=== PATIENT | male | born 1985 | race African-American/Black ===

== ENCOUNTER 2017-06-03 23:04 | Emergency (ER) | payer BC, MEDICARE, OTHER ==
[~2017-06-03] VITALS: Ht 170.2 cm; Wt 98.1 kg
[2017-06-04] MEDS ORDERED: IBUPROFEN 400MG TABLET PO ONE (06:00)
[2017-06-04 06:13] VITALS: BP 132/72
== END 2017-06-04 06:33 | disposition home or self-care (01) ==
LOC: ER 23:04
DX: S63.502A Unspecified sprain of left wrist, initial encounter (principal); S60.222A Contusion of left hand, initial encounter; W01.0XXA Fall on same level from slipping, tripping and stumbling without subsequent striking against object, initial encounter; Y93.89 Activity, other specified; Y92.89 Other specified places as the place of occurrence of the external cause; Z86.59 Personal history of other mental and behavioral disorders
CPT/HCPCS: 29125; 73110; 73130; 99284

== ENCOUNTER 2018-12-29 15:59 | Emergency (ER) | payer MEDICARE, MEDICAID ==
[~2018-12-29] VITALS: Ht 170.2 cm; Wt 88.0 kg
[2018-12-29 16:23] VITALS: BP 134/78
[2018-12-29] MEDS ORDERED: AMOXICILLIN/POTASSIUM CLAVULANATE 500/125MG TAB PO ONE (17:30)
== END 2018-12-30 07:50 | disposition home or self-care (01) ==
LOC: ER 20:59
DX: H92.02 Otalgia, left ear (principal); F20.9 Schizophrenia, unspecified
CPT/HCPCS: 99283

== ENCOUNTER 2019-08-18 10:45 | Emergency (ER) | payer MEDICARE, MEDICAID ==
[~2019-08-18] VITALS: Ht 170.2 cm; Wt 91.0 kg
[2019-08-18 10:53] VITALS: BP 134/85
== END 2019-08-18 13:37 | disposition home or self-care (01) ==
LOC: ER 10:45
DX: R79.9 Abnormal finding of blood chemistry, unspecified (principal); F20.9 Schizophrenia, unspecified
CPT/HCPCS: 36415; 99283